=== PATIENT | male | born 1935 | race Caucasian/White ===

== ENCOUNTER 2018-02-07 16:39 | Inpatient (IN) | payer OTHER ==
[~2018-02-07] VITALS: Ht 172.7 cm; Wt 73.6 kg
--- NOTE | ~2018-02-07 | CON ---
[place], [place] REPORT OF CONSULTATION NAME: ZOË VIZCARRA UNIT #: [id number] ROOM: 402 DOCTOR: LISANDRA KONG DPM BIRTHDATE: [birth year] DOS: 02/08/2018 SUBJECTIVE: The patient presents as an 82-year-old male with chief complaint of elongated, thickened nails of both feet. PAST MEDICAL HISTORY: B12 deficiency, benign prostatic hyperplasia, dementia, glaucoma, hyperlipidemia, macrocytic anemia, tobacco abuse, vitamin D deficiency. PAST SURGICAL HISTORY: Cataract extraction. SOCIAL HISTORY: Smoking. Denies illicit drug use or alcohol. FAMILY HISTORY: Unable to achieve. PHYSICAL EXAMINATION: LOWER EXTREMITIES: Decreased pedal pulses bilateral. Decreased hair growth, nail thickening, pigmentary discoloration bilateral. Temperature changes, mild edema, decreased epicritic sensations. Crumbly, thickened, yellow, dystrophic, incurvated nails causing pain, 1 through 5 bilateral foot. Hallux valgus deformity is noted bilateral, contracted lesser digits noted bilateral. ASSESSMENT: Onychomycosis with PVD, dystrophy of nails bilateral, digital deformities bilateral, hallux valgus bilateral. PLAN: Evaluation and management. Debrided nails 1 through 5 bilateral. Thank you for your kind consultation. LISANDRA KONG DPM CM:CONSTR:REPORT OF CONSULTATION 1216 02/08/18 1603 interface
--- NOTE | ~2018-02-07 | CON ---
[place], [place] REPORT OF CONSULTATION NAME: ZOË VIZCARRA UNIT #: [id number] ROOM: 505 DOCTOR: ALEKS CABALLERO MD BIRTHDATE: [birth year] DOS: 02/13/2018 CHIEF COMPLAINT: "Hey, good morning there." HISTORY OF PRESENT ILLNESS: This is an 82-year-old white male who was brought to the emergency room at [facility] by his family. Family stated that they no longer can meet his needs at home and that he has become increasingly more confused and disoriented. He had been admitted in December for similar issues. The physicians on the case had suggested that he be placed into a long-term care facility, but the family resisted and wanted to give it one more try at home. Since that time, the patient has continued to progress with his dementia and is becoming much more confused and disoriented, requiring a greater level of care than they are able to provide. PAST MEDICAL HISTORY: Remarkable for vitamin B12 deficiency, benign prostatic hypertrophy, glaucoma, hyperlipidemia, macrocytic anemia, tobacco abuse, vitamin D deficiency and dementia. MENTAL STATUS: The patient is alert and oriented to self, possibly place in that he knows he is in the hospital, but not to time. His responses to me were short and simple, at times inappropriate. He tended to ramble. He did engage or attempt to engage though in conversation. There was no agitation or aggression. There was no symptom suggestive of hypomania or celeste. There were no auditory or visual hallucinations. No delusions, no paranoia. He did process conversation slowly and short term memory is exceedingly poor. DIAGNOSIS: Alzheimer dementia. PLAN: His Aricept is being given in a 5 mg b.i.d. dosing. There is no advantage to dosing the Aricept b.i.d. We will change it to 10 mg a day that will lessen the medication passes that he has to have. I will augment with Namenda 5 mg a day. This dose should be gradually titrated upwards to 10 mg twice daily to impact positively on the dementia. Depending on which long-term care facility he goes to in the area, I will follow him if the family requests. ALEKS CABALLERO MD CM:CONSTR:REPORT OF CONSULTATION 1007 02/13/18 1346 interface
[~2018-02-07 16:39] MED LIST: ANTI-FUNGAL1% TP; ASPIRIN81 M1 PO; ATARAX25 MG PO; AVODART0.5 M1 PO; CRESTOR10 MG PO; CRESTOR20 M1 PO; CRESTOR5 MG PO; MACROBID100 M1 PO; MULTI VITAMINS1 TAB PO; MYRBETRIQ25 M1 PO; PREDNICOT20 MG PO; VIGAMOX OPH
[2018-02-07 16:50] VITALS: BP 108/56
[2018-02-07] MEDS ORDERED: DONEPEZIL HYDROC5 M1 PO (16:51)
[2018-02-07 17:04] LABS: BILIRUBIN NEGATIVE (NEGATIVE); BLOOD 1+ (NEGATIVE); CLARITY CLOUDY (CLEAR); COLOR YELLOW (YELLOW); GLUCOSE NEGATIVE (NEGATIVE); KETONE NEGATIVE (NEGATIVE); LEUKO ESTERASE 3+ (NEGATIVE); NITRITE NEGATIVE (NEGATIVE); PH 7.5 (5.0-9.0)
[2018-02-07 17:17] VITALS: BP 112/52
[2018-02-07 17:22] LABS: BACTERIA 4+; RBC TNTC rbc/hpf (0-2); WBC TNTC wbc/hpf (0-5)
[2018-02-07 17:54] LABS: BASO # 0.1 10*3/uL (0.0-0.1); BASO % 0.7 % (0.0-1.0); EOS # 0.2 10*3/uL (0.0-0.4); EOS % 1.5 % (1.0-4.0); HEMATOCRIT 37.2 % (42.0-52.0); HEMOGLOBIN 12.2 g/dl (14.0-18.0); LYMPH # 1.1 10*3/uL (1.3-4.4); LYMPH % 7.3 % (27.0-41.0); MEAN CELL VOLUME 96.4 fl (80.0-94.0); MEAN CORPUSCULAR HGB 31.6 pg (27.0-31.0); MEAN CORPUSCULAR HGB CONC 32.8 g/dl (33.0-37.0); MEAN PLATELET VOLUME 9.1 fl (9.6-12.3); MONO # 0.9 10*3/uL (0.1-1.0); MONO % 5.9 % (3.0-9.0); NEUT # 12.9 10*3/uL (2.3-7.9); NEUT % 84.1 % (47.0-73.0); PLATELET COUNT AUTOMATED 352 10*3/uL (130-400); RED BLOOD COUNT 3.86 10*6/uL (4.50-5.90); RED CELL DISTRI WIDTH 12.8 % (0-14.5); WHITE BLOOD COUNT 15.3 10*3/uL (4.8-10.8)
[2018-02-07 18:11] LABS: ALBUMIN 2.3 gm/dl (3.1-4.5); ALKALINE PHOSPHATASE 94 U/L (45-117); BUN 18 mg/dl (7-24); CHLORIDE 104 mmol/L (98-107); CREATININE 0.92 mg/dL (0.70-1.30); POTASSIUM 4.1 mmol/L (3.5-5.1); SGOT/AST 33 IU/L (3-35); SGPT/ALT 37 U/L (12-78); SODIUM 141 mmol/L (136-145); TOTAL PROTEIN 6.4 gm/dL (6.4-8.2)
[2018-02-07 18:17] LABS: TROPONIN I < 0.015 ng/ml (<0.045)
[2018-02-07 18:25] VITALS: BP 101/53
[2018-02-07] MEDS ORDERED: PRESERVISION A1 EACH PO (19:30)
[2018-02-07] MEDS ORDERED: XALATAN 0.005%2.5 ML OU (19:30)
[2018-02-07] MEDS ORDERED: AVODART0.5 M1 PO (19:31)
[2018-02-07 20:00] VITALS: BP 125/77
[2018-02-08] VITALS: BP 116/62
[2018-02-08 06:47] LABS: ACT PARTIAL THROMBO TIME 24.8 SECONDS (20.8-31.5); INTERNATIONAL NORM RATIO 1.1 (2.0-3.5)
[2018-02-08 07:23] LABS: VITAMIN D, 25-HYDROXY 22.2 ng/mL (30-100)
[2018-02-08 08:00] VITALS: BP 110/60
[2018-02-08 08:06] LABS: BASO # 0.1 10*3/uL (0.0-0.1); BASO % 0.7 % (0.0-1.0); EOS # 0.3 10*3/uL (0.0-0.4); EOS % 1.7 % (1.0-4.0); HEMATOCRIT 35.4 % (42.0-52.0); HEMOGLOBIN 11.6 g/dl (14.0-18.0); LYMPH % 5.7 % (27.0-41.0); MEAN CELL VOLUME 95.7 fl (80.0-94.0); MEAN CORPUSCULAR HGB 31.4 pg (27.0-31.0); MEAN CORPUSCULAR HGB CONC 32.8 g/dl (33.0-37.0); MEAN PLATELET VOLUME 9.2 fl (9.6-12.3); MONO % 5.9 % (3.0-9.0); NEUT # 14.4 10*3/uL (2.3-7.9); NEUT % 85.5 % (47.0-73.0); PLATELET COUNT AUTOMATED 362 10*3/uL (130-400); RED CELL DISTRI WIDTH 12.8 % (0-14.5); WHITE BLOOD COUNT 16.8 10*3/uL (4.8-10.8)
[2018-02-08 08:29] LABS: ALBUMIN 2.1 gm/dl (3.1-4.5); ALKALINE PHOSPHATASE 86 U/L (45-117); BUN 15 mg/dl (7-24); CHLORIDE 105 mmol/L (98-107); CHOLESTEROL 79 mg/dL (<200); PHOSPHOROUS 2.5 mg/dL (2.5-4.9); POTASSIUM 4.2 mmol/L (3.5-5.1); SGOT/AST 27 IU/L (3-35); SODIUM 141 mmol/L (136-145); TOTAL PROTEIN 5.8 gm/dL (6.4-8.2); TRIGLYCERIDES 89 mg/dl (<150); VLDL CHOLESTEROL 18 mg/dL (6-40)
[2018-02-08 08:34] LABS: FREE T4 1.27 ng/dl (0.76-1.46); HDL CHOLESTEROL 22 mg/dl (40-60); LDL CHOLESTEROL 39 mg/dL (9-159); SGPT/ALT 29 U/L (12-78); THYROID STIM HORMONE (HS) 0.998 uIU/ml (0.358-4.75)
[2018-02-08 12:00] VITALS: BP 107/56; BP 122/71
[2018-02-08] MEDS ORDERED: SOOTHE XP EYE D15 ML OPH (14:44)
[2018-02-08 16:00] VITALS: BP 123/52
[2018-02-08 20:00] VITALS: BP 150/71
[2018-02-09] VITALS: BP 130/64
[2018-02-09 07:24] LABS: BASO # 0.1 10*3/uL (0.0-0.1); BASO % 0.6 % (0.0-1.0); EOS # 0.3 10*3/uL (0.0-0.4); EOS % 1.7 % (1.0-4.0); HEMATOCRIT 36.1 % (42.0-52.0); HEMOGLOBIN 11.9 g/dl (14.0-18.0); LYMPH # 0.7 10*3/uL (1.3-4.4); LYMPH % 4.5 % (27.0-41.0); MEAN CELL VOLUME 95.5 fl (80.0-94.0); MEAN CORPUSCULAR HGB 31.5 pg (27.0-31.0); MEAN PLATELET VOLUME 9.2 fl (9.6-12.3); MONO # 0.9 10*3/uL (0.1-1.0); MONO % 5.8 % (3.0-9.0); NEUT % 86.8 % (47.0-73.0); PLATELET COUNT AUTOMATED 383 10*3/uL (130-400); RED BLOOD COUNT 3.78 10*6/uL (4.50-5.90); RED CELL DISTRI WIDTH 12.6 % (0-14.5); WHITE BLOOD COUNT 16.1 10*3/uL (4.8-10.8)
[2018-02-09 08:00] VITALS: BP 126/72
[2018-02-09 12:00] VITALS: BP 113/52
[2018-02-09 16:00] VITALS: BP 122/53
[2018-02-09 20:00] VITALS: BP 121/65
[2018-02-10] VITALS: BP 126/60
[2018-02-10 06:56] LABS: BASO # 0.1 10*3/uL (0.0-0.1); BASO % 0.7 % (0.0-1.0); EOS # 0.4 10*3/uL (0.0-0.4); EOS % 2.3 % (1.0-4.0); HEMATOCRIT 37.1 % (42.0-52.0); LYMPH % 6.1 % (27.0-41.0); MEAN CELL VOLUME 95.9 fl (80.0-94.0); MEAN CORPUSCULAR HGB CONC 32.3 g/dl (33.0-37.0); MEAN PLATELET VOLUME 9.1 fl (9.6-12.3); MONO # 0.9 10*3/uL (0.1-1.0); MONO % 5.8 % (3.0-9.0); NEUT # 13.7 10*3/uL (2.3-7.9); NEUT % 84.5 % (47.0-73.0); PLATELET COUNT AUTOMATED 409 10*3/uL (130-400); RED BLOOD COUNT 3.87 10*6/uL (4.50-5.90); RED CELL DISTRI WIDTH 12.8 % (0-14.5); WHITE BLOOD COUNT 16.2 10*3/uL (4.8-10.8)
[2018-02-10 08:00] VITALS: BP 124/58
[2018-02-10 12:00] VITALS: BP 99/64
[2018-02-10 16:00] VITALS: BP 116/57
[2018-02-10 20:00] VITALS: BP 116/59
[2018-02-11] VITALS: BP 109/62
[2018-02-11 06:42] LABS: CREATININE 0.76 mg/dL (0.70-1.30)
[2018-02-11 08:00] VITALS: BP 102/78
[2018-02-11 12:00] VITALS: BP 112/62
[2018-02-11 16:00] VITALS: BP 125/59
[2018-02-11 20:00] VITALS: BP 116/55
[2018-02-12] VITALS: BP 116/61
[2018-02-12 08:00] VITALS: BP 103/52
[2018-02-12 12:00] VITALS: BP 110/56
[2018-02-12 16:00] VITALS: BP 134/95
[2018-02-12 20:00] VITALS: BP 115/54
[2018-02-13 00:31] VITALS: BP 112/52
[2018-02-13 05:50] LABS: BASO # 0.1 10*3/uL (0.0-0.1); BASO % 0.7 % (0.0-1.0); EOS # 0.5 10*3/uL (0.0-0.4); HEMATOCRIT 34.4 % (42.0-52.0); HEMOGLOBIN 11.3 g/dl (14.0-18.0); LYMPH # 1.2 10*3/uL (1.3-4.4); LYMPH % 6.8 % (27.0-41.0); MEAN CELL VOLUME 97.5 fl (80.0-94.0); MEAN CORPUSCULAR HGB CONC 32.8 g/dl (33.0-37.0); MEAN PLATELET VOLUME 9.3 fl (9.6-12.3); MONO # 1.1 10*3/uL (0.1-1.0); MONO % 6.4 % (3.0-9.0); NEUT # 14.5 10*3/uL (2.3-7.9); NEUT % 82.4 % (47.0-73.0); PLATELET COUNT AUTOMATED 437 10*3/uL (130-400); RED BLOOD COUNT 3.53 10*6/uL (4.50-5.90); RED CELL DISTRI WIDTH 13.1 % (0-14.5); WHITE BLOOD COUNT 17.6 10*3/uL (4.8-10.8)
[2018-02-13 08:00] VITALS: BP 120/56
[2018-02-13 12:00] VITALS: BP 123/68
[2018-02-13 16:00] VITALS: BP 107/77
[2018-02-13 20:14] VITALS: BP 127/53
[2018-02-14] VITALS: BP 112/64
[2018-02-14 06:21] LABS: BASO # 0.1 10*3/uL (0.0-0.1); BASO % 0.7 % (0.0-1.0); EOS # 0.4 10*3/uL (0.0-0.4); EOS % 2.9 % (1.0-4.0); HEMATOCRIT 37.3 % (42.0-52.0); HEMOGLOBIN 11.9 g/dl (14.0-18.0); LYMPH # 1.2 10*3/uL (1.3-4.4); LYMPH % 8.1 % (27.0-41.0); MEAN CELL VOLUME 97.1 fl (80.0-94.0); MEAN CORPUSCULAR HGB CONC 31.9 g/dl (33.0-37.0); MONO # 0.9 10*3/uL (0.1-1.0); MONO % 6.3 % (3.0-9.0); NEUT # 12.1 10*3/uL (2.3-7.9); NEUT % 81.4 % (47.0-73.0); PLATELET COUNT AUTOMATED 424 10*3/uL (130-400); RED BLOOD COUNT 3.84 10*6/uL (4.50-5.90); WHITE BLOOD COUNT 14.9 10*3/uL (4.8-10.8)
[2018-02-14 08:00] VITALS: BP 116/90
[2018-02-14 12:00] VITALS: BP 116/61
[2018-02-14 16:00] VITALS: BP 117/79
[2018-02-14 20:00] VITALS: BP 113/89
[2018-02-15] VITALS: BP 97/71
[2018-02-15 06:30] LABS: CREATININE 0.81 mg/dL (0.70-1.30)
[2018-02-15 08:00] VITALS: BP 140/82
[2018-02-15 12:00] VITALS: BP 98/51
[2018-02-15 16:00] VITALS: BP 117/73
[2018-02-15 20:00] VITALS: BP 139/70
[2018-02-16] VITALS: BP 120/72
[2018-02-16 08:00] VITALS: BP 118/80
[2018-02-16 12:00] VITALS: BP 111/61
[2018-02-16 16:00] VITALS: BP 131/64
[2018-02-16 20:00] VITALS: BP 128/76; BP 134/95
[2018-02-17] VITALS: BP 104/74
[2018-02-17 07:00] LABS: BASO # 0.1 10*3/uL (0.0-0.1); BASO % 0.7 % (0.0-1.0); EOS # 0.4 10*3/uL (0.0-0.4); EOS % 2.1 % (1.0-4.0); HEMATOCRIT 37.4 % (42.0-52.0); HEMOGLOBIN 12.3 g/dl (14.0-18.0); LYMPH # 1.5 10*3/uL (1.3-4.4); LYMPH % 8.5 % (27.0-41.0); MEAN CELL VOLUME 96.4 fl (80.0-94.0); MEAN CORPUSCULAR HGB 31.7 pg (27.0-31.0); MEAN CORPUSCULAR HGB CONC 32.9 g/dl (33.0-37.0); MEAN PLATELET VOLUME 9.3 fl (9.6-12.3); MONO # 1.1 10*3/uL (0.1-1.0); MONO % 6.4 % (3.0-9.0); NEUT # 14.5 10*3/uL (2.3-7.9); NEUT % 81.6 % (47.0-73.0); PLATELET COUNT AUTOMATED 483 10*3/uL (130-400); RED BLOOD COUNT 3.88 10*6/uL (4.50-5.90); WHITE BLOOD COUNT 17.8 10*3/uL (4.8-10.8)
[2018-02-17 08:00] VITALS: BP 103/70
[2018-02-17] MEDS ORDERED: ARICEPT10 M1 PO (11:12)
[2018-02-17] MEDS ORDERED: VITAMIN D31000 UNIT PO (11:12)
[2018-02-17] MEDS ORDERED: NAMENDA-5 PO (11:12)
== END 2018-02-17 13:30 | disposition home or self-care (01) | DRG 689 ==
LOC: ED 16:39 → 4E 17:55 → 5E 17:55 → EDHOLD 17:55 → 4E 18:12 → 5E 02-09 21:47
PROVIDERS: Emergency Medicine; Internal Medicine; Internal Medicine Hospice and Palliative Medicine
PROC: 0HBRXZZ Excision of Toe Nail, External Approach (ICD-10-PCS; principal; 2018-02-08)
DX: N30.01 Acute cystitis with hematuria (principal); G93.41 Metabolic encephalopathy; E43 Unspecified severe protein-calorie malnutrition; D53.9 Nutritional anemia, unspecified; G30.9 Alzheimer's disease, unspecified; F02.81 Dementia in other diseases classified elsewhere, unspecified severity, with behavioral disturbance; I73.9 Peripheral vascular disease, unspecified; B35.1 Tinea unguium; E55.9 Vitamin D deficiency, unspecified; M20.12 Hallux valgus (acquired), left foot; L60.3 Nail dystrophy; L60.8 Other nail disorders; E78.5 Hyperlipidemia, unspecified; M20.11 Hallux valgus (acquired), right foot; N32.81 Overactive bladder; R26.2 Difficulty in walking, not elsewhere classified; N40.0 Benign prostatic hyperplasia without lower urinary tract symptoms; R73.9 Hyperglycemia, unspecified; Z87.891 Personal history of nicotine dependence; Z91.81 History of falling; Z87.440 Personal history of urinary (tract) infections; Z88.1 Allergy status to other antibiotic agents; Z98.49 Cataract extraction status, unspecified eye; Z79.899 Other long term (current) drug therapy; Z68.23 Body mass index [BMI] 23.0-23.9, adult; Z66 Do not resuscitate; Z51.5 Encounter for palliative care

== ENCOUNTER 2018-02-17 17:17 | Inpatient (IN) | payer OTHER ==
[~2018-02-17] VITALS: Ht 172.7 cm; Wt 70.1 kg
[~2018-02-17 17:17] MED LIST changes: +ARICEPT10 M1 PO; +DONEPEZIL HYDROC5 M1 PO; +NAMENDA-5 PO; +PRESERVISION A1 EACH PO; +SOOTHE XP EYE D15 ML OPH; +VITAMIN D31000 UNIT PO; +XALATAN 0.005%2.5 ML OU
[2018-02-17 17:19] VITALS: BP 111/51
[2018-02-17 17:49] LABS: BASO # 0.1 10*3/uL (0.0-0.1); BASO % 0.5 % (0.0-1.0); EOS # 0.3 10*3/uL (0.0-0.4); EOS % 1.6 % (1.0-4.0); HEMATOCRIT 35.3 % (42.0-52.0); HEMOGLOBIN 11.3 g/dl (14.0-18.0); LYMPH # 1.4 10*3/uL (1.3-4.4); LYMPH % 8.2 % (27.0-41.0); MEAN CELL VOLUME 96.7 fl (80.0-94.0); MEAN PLATELET VOLUME 9.2 fl (9.6-12.3); MONO # 0.9 10*3/uL (0.1-1.0); MONO % 5.6 % (3.0-9.0); NEUT # 13.8 10*3/uL (2.3-7.9); NEUT % 83.5 % (47.0-73.0); PLATELET COUNT AUTOMATED 420 10*3/uL (130-400); RED BLOOD COUNT 3.65 10*6/uL (4.50-5.90); RED CELL DISTRI WIDTH 12.9 % (0-14.5); WHITE BLOOD COUNT 16.6 10*3/uL (4.8-10.8)
[2018-02-17 18:08] LABS: ALKALINE PHOSPHATASE 100 U/L (45-117); BUN 34 mg/dl (7-24); CHLORIDE 103 mmol/L (98-107); CREATININE 0.97 mg/dL (0.70-1.30); POTASSIUM 4.1 mmol/L (3.5-5.1); SGOT/AST 67 IU/L (3-35); SGPT/ALT 98 U/L (12-78); SODIUM 139 mmol/L (136-145); TOTAL PROTEIN 5.9 gm/dL (6.4-8.2)
[2018-02-17 18:10] LABS: TROPONIN I 0.402 ng/ml (<0.045)
[2018-02-17 18:20] LABS: BILIRUBIN NEGATIVE (NEGATIVE); BLOOD 2+ (NEGATIVE); CLARITY TURBID (CLEAR); COLOR YELLOW (YELLOW); GLUCOSE NEGATIVE (NEGATIVE); KETONE NEGATIVE (NEGATIVE); LEUKO ESTERASE 2+ (NEGATIVE); NITRITE NEGATIVE (NEGATIVE); PH 5.5 (5.0-9.0); SPECIFIC GRAVITY 1.025 (1.005-1.030); UROBILINOGEN 0.2 E.U./dl (0.2-1.0)
[2018-02-17 18:25] VITALS: BP 105/54
[2018-02-17 18:27] LABS: BACTERIA 4+; RBC TNTC rbc/hpf (0-2); WBC TNTC wbc/hpf (0-5)
[2018-02-17 18:51] VITALS: BP 111/48
[2018-02-17 19:23] LABS: ACT PARTIAL THROMBO TIME 23.2 SECONDS (20.8-31.5)
[2018-02-17 19:45] VITALS: BP 99/64
[2018-02-18] VITALS: BP 113/61
[2018-02-18 06:47] LABS: BASO # 0.1 10*3/uL (0.0-0.1); BASO % 0.6 % (0.0-1.0); EOS # 0.4 10*3/uL (0.0-0.4); EOS % 2.7 % (1.0-4.0); HEMATOCRIT 33.5 % (42.0-52.0); HEMOGLOBIN 10.8 g/dl (14.0-18.0); LYMPH # 1.1 10*3/uL (1.3-4.4); LYMPH % 6.9 % (27.0-41.0); MEAN CELL VOLUME 96.5 fl (80.0-94.0); MEAN CORPUSCULAR HGB 31.1 pg (27.0-31.0); MEAN CORPUSCULAR HGB CONC 32.2 g/dl (33.0-37.0); MEAN PLATELET VOLUME 9.2 fl (9.6-12.3); MONO # 0.9 10*3/uL (0.1-1.0); MONO % 5.5 % (3.0-9.0); NEUT # 13.6 10*3/uL (2.3-7.9); NEUT % 83.6 % (47.0-73.0); PLATELET COUNT AUTOMATED 409 10*3/uL (130-400); RED BLOOD COUNT 3.47 10*6/uL (4.50-5.90); RED CELL DISTRI WIDTH 12.7 % (0-14.5); WHITE BLOOD COUNT 16.3 10*3/uL (4.8-10.8)
[2018-02-18 07:15] LABS: ALBUMIN 1.8 gm/dl (3.1-4.5); BUN 28 mg/dl (7-24); CHLORIDE 106 mmol/L (98-107); CREATININE 0.72 mg/dL (0.70-1.30); POTASSIUM 3.8 mmol/L (3.5-5.1); SGPT/ALT 96 U/L (12-78); SODIUM 141 mmol/L (136-145)
[2018-02-18 07:18] LABS: ALKALINE PHOSPHATASE 100 U/L (45-117); PHOSPHOROUS 2.8 mg/dL (2.5-4.9); SGOT/AST 68 IU/L (3-35); TOTAL PROTEIN 5.4 gm/dL (6.4-8.2)
[2018-02-18 08:00] VITALS: BP 93/54
[2018-02-18 12:00] VITALS: BP 133/54
[2018-02-18 16:00] VITALS: BP 116/52
[2018-02-18 20:00] VITALS: BP 122/62
[2018-02-19] VITALS: BP 110/66
[2018-02-19 06:36] LABS: BASO # 0.1 10*3/uL (0.0-0.1); BASO % 1.1 % (0.0-1.0); EOS # 0.3 10*3/uL (0.0-0.4); EOS % 2.7 % (1.0-4.0); HEMOGLOBIN 11.2 g/dl (14.0-18.0); LYMPH # 1.3 10*3/uL (1.3-4.4); LYMPH % 10.2 % (27.0-41.0); MEAN CELL VOLUME 97.2 fl (80.0-94.0); MEAN CORPUSCULAR HGB 31.1 pg (27.0-31.0); MEAN PLATELET VOLUME 9.3 fl (9.6-12.3); MONO # 0.9 10*3/uL (0.1-1.0); MONO % 6.8 % (3.0-9.0); NEUT % 78.7 % (47.0-73.0); PLATELET COUNT AUTOMATED 430 10*3/uL (130-400); RED CELL DISTRI WIDTH 12.9 % (0-14.5); WHITE BLOOD COUNT 12.7 10*3/uL (4.8-10.8)
[2018-02-19 06:45] LABS: ALBUMIN 1.9 gm/dl (3.1-4.5); BUN 21 mg/dl (7-24); CHLORIDE 104 mmol/L (98-107); CREATININE 0.76 mg/dL (0.70-1.30); POTASSIUM 4.2 mmol/L (3.5-5.1); SGOT/AST 47 IU/L (3-35); SGPT/ALT 85 U/L (12-78); SODIUM 142 mmol/L (136-145)
[2018-02-19 06:46] LABS: ALKALINE PHOSPHATASE 99 U/L (45-117); TOTAL PROTEIN 5.7 gm/dL (6.4-8.2)
[2018-02-19 08:00] VITALS: BP 108/68
[2018-02-19 12:00] VITALS: BP 100/75
[2018-02-19 16:00] VITALS: BP 130/68
[2018-02-19 20:00] VITALS: BP 105/50
[2018-02-20] VITALS: BP 111/68
[2018-02-20 06:27] LABS: BASO # 0.1 10*3/uL (0.0-0.1); BASO % 0.8 % (0.0-1.0); EOS # 0.4 10*3/uL (0.0-0.4); EOS % 2.7 % (1.0-4.0); HEMATOCRIT 36.8 % (42.0-52.0); HEMOGLOBIN 11.8 g/dl (14.0-18.0); LYMPH # 1.5 10*3/uL (1.3-4.4); LYMPH % 9.2 % (27.0-41.0); MEAN CELL VOLUME 97.6 fl (80.0-94.0); MEAN CORPUSCULAR HGB 31.3 pg (27.0-31.0); MEAN CORPUSCULAR HGB CONC 32.1 g/dl (33.0-37.0); MEAN PLATELET VOLUME 8.8 fl (9.6-12.3); MONO # 1.1 10*3/uL (0.1-1.0); MONO % 6.5 % (3.0-9.0); NEUT % 80.3 % (47.0-73.0); PLATELET COUNT AUTOMATED 410 10*3/uL (130-400); RED BLOOD COUNT 3.77 10*6/uL (4.50-5.90); RED CELL DISTRI WIDTH 12.7 % (0-14.5); WHITE BLOOD COUNT 16.2 10*3/uL (4.8-10.8)
[2018-02-20 06:56] LABS: ALBUMIN 2.1 gm/dl (3.1-4.5); ALKALINE PHOSPHATASE 101 U/L (45-117); BUN 21 mg/dl (7-24); CHLORIDE 104 mmol/L (98-107); CREATININE 0.74 mg/dL (0.70-1.30); POTASSIUM 4.1 mmol/L (3.5-5.1); SGOT/AST 38 IU/L (3-35); SGPT/ALT 74 U/L (12-78); SODIUM 142 mmol/L (136-145); TOTAL PROTEIN 5.9 gm/dL (6.4-8.2)
[2018-02-20 08:00] VITALS: BP 127/56
[2018-02-20 12:00] VITALS: BP 150/60
[2018-02-20 16:00] VITALS: BP 116/62
[2018-02-20 20:00] VITALS: BP 100/64
[2018-02-21] VITALS: BP 103/53
[2018-02-21 08:00] VITALS: BP 108/59
[2018-02-21 12:00] VITALS: BP 106/58; BP 147/60
[2018-02-21 16:00] VITALS: BP 107/63
[2018-02-21 20:00] VITALS: BP 113/61
[2018-02-22] VITALS: BP 170/54
[2018-02-22 06:06] LABS: BASO # 0.1 10*3/uL (0.0-0.1); BASO % 0.7 % (0.0-1.0); EOS # 0.4 10*3/uL (0.0-0.4); HEMATOCRIT 34.5 % (42.0-52.0); HEMOGLOBIN 10.9 g/dl (14.0-18.0); LYMPH # 1.6 10*3/uL (1.3-4.4); MEAN CELL VOLUME 97.2 fl (80.0-94.0); MEAN CORPUSCULAR HGB 30.7 pg (27.0-31.0); MEAN CORPUSCULAR HGB CONC 31.6 g/dl (33.0-37.0); MEAN PLATELET VOLUME 9.1 fl (9.6-12.3); MONO # 0.8 10*3/uL (0.1-1.0); MONO % 5.7 % (3.0-9.0); NEUT # 10.4 10*3/uL (2.3-7.9); NEUT % 78.2 % (47.0-73.0); PLATELET COUNT AUTOMATED 408 10*3/uL (130-400); RED BLOOD COUNT 3.55 10*6/uL (4.50-5.90); RED CELL DISTRI WIDTH 12.9 % (0-14.5); WHITE BLOOD COUNT 13.4 10*3/uL (4.8-10.8)
[2018-02-22 06:31] LABS: BUN 25 mg/dl (7-24); CHLORIDE 106 mmol/L (98-107); SODIUM 143 mmol/L (136-145)
[2018-02-22 07:58] VITALS: BP 111/51
[2018-02-22 11:55] VITALS: BP 100/50
[2018-02-22 16:00] VITALS: BP 105/50
[2018-02-22 20:00] VITALS: BP 108/85
[2018-02-23] VITALS: BP 104/60
[2018-02-23 08:00] VITALS: BP 108/62
[2018-02-23 12:00] VITALS: BP 110/66
[2018-02-23] MEDS ORDERED: ATORVASTATIN CA80 M1 PO (15:20)
[2018-02-23] MEDS ORDERED: ASPIRIN ADULT L81 M2 PO (15:20)
[2018-02-23] MEDS ORDERED: ENALAPRIL MALEAT5 MG PO (15:20)
[2018-02-23] MEDS ORDERED: LOPRESSOR25 MG PO (15:20)
[2018-02-23 16:00] VITALS: BP 107/64
== END 2018-02-23 18:48 | disposition other institution (70) | DRG 280 ==
LOC: ED 17:17 → 4E 18:31 → EDHOLD 18:31 → 4E 18:53
PROVIDERS: Internal Medicine; Internal Medicine Hospice and Palliative Medicine; Student in an Organized Health Care Education/Training Program
DX: I21.4 Non-ST elevation (NSTEMI) myocardial infarction (principal); E43 Unspecified severe protein-calorie malnutrition; G93.41 Metabolic encephalopathy; D50.9 Iron deficiency anemia, unspecified; F17.200 Nicotine dependence, unspecified, uncomplicated; B95.2 Enterococcus as the cause of diseases classified elsewhere; N39.0 Urinary tract infection, site not specified; F03.90 Unspecified dementia, unspecified severity, without behavioral disturbance, psychotic disturbance, mood disturbance, and anxiety; D47.3 Essential (hemorrhagic) thrombocythemia; R62.7 Adult failure to thrive; N40.0 Benign prostatic hyperplasia without lower urinary tract symptoms; H40.9 Unspecified glaucoma; E78.5 Hyperlipidemia, unspecified; N32.81 Overactive bladder; R74.0 Nonspecific elevation of levels of transaminase and lactic acid dehydrogenase [LDH]; R80.9 Proteinuria, unspecified; D72.829 Elevated white blood cell count, unspecified; D72.810 Lymphocytopenia; D72.9 Disorder of white blood cells, unspecified; E55.9 Vitamin D deficiency, unspecified; Z98.49 Cataract extraction status, unspecified eye; Z88.1 Allergy status to other antibiotic agents; Z79.899 Other long term (current) drug therapy; Z68.23 Body mass index [BMI] 23.0-23.9, adult

== ENCOUNTER 2018-02-26 13:06 | Emergency (ER) | payer OTHER ==
[~2018-02-26] VITALS: Wt 59.0 kg
[~2018-02-26 13:06] MED LIST changes: +ASPIRIN ADULT L81 M2 PO; +ATORVASTATIN CA80 M1 PO; +ENALAPRIL MALEAT5 MG PO; +LOPRESSOR25 MG PO
== END 2018-02-26 16:00 | disposition home or self-care (01) ==
LOC: ED 13:06
DX: M25.552 Pain in left hip (principal); E78.5 Hyperlipidemia, unspecified; Z88.1 Allergy status to other antibiotic agents; Z79.899 Other long term (current) drug therapy; W05.0XXA Fall from non-moving wheelchair, initial encounter; Y93.89 Activity, other specified; Y92.531 Health care provider office as the place of occurrence of the external cause; Y99.8 Other external cause status